=== PATIENT | male | born 2000 | race Two or more races ===

== ENCOUNTER 2023-03-24 21:20 | Emergency (ER) | payer OTHER ==
[~2023-03-24] VITALS: Ht 170.2 cm; Wt 72.6 kg
[2023-03-24] MEDS ORDERED: TRUVADA 200 MG1 EACH (21:37)
[2023-03-25] MEDS ORDERED: ONDANSETRON ODT4 MG PO (05:34)
[2023-03-25] MEDS ORDERED: LEVSIN/SL0.125 MG SL (05:34)
[2023-03-25] MEDS ORDERED: PEPCID40 MG PO (05:34)
== END 2023-03-25 05:43 ==
LOC: ER 21:20
DX: N39.0 Urinary tract infection, site not specified (principal); K80.20 Calculus of gallbladder without cholecystitis without obstruction; Z88.8 Allergy status to other drugs, medicaments and biological substances

== ENCOUNTER 2023-05-01 12:01 | Outpatient (CLI) | payer OTHER ==
[~2023-05-01 12:01] MED LIST: LEVSIN/SL0.125 MG SL; ONDANSETRON ODT4 MG PO; PEPCID40 MG PO; TRUVADA 200 MG1 EACH
== END 2023-05-01 12:02 | disposition home or self-care (01) ==
LOC: NUCLEAR 12:01
PROVIDERS: ATTEND Internal Medicine Gastroenterology
DX: K80.20 Calculus of gallbladder without cholecystitis without obstruction (principal)

== ENCOUNTER 2023-07-15 20:28 | Emergency (ER) | payer OTHER ==
[~2023-07-15] VITALS: Ht 170.2 cm; Wt 70.3 kg
[2023-07-15 21:33] LABS: HEMATOCRIT 40.1 % (39.0-48.0); HEMOGLOBIN 13.7 g/dL (13-16.00); MEAN CELL VOLUME 85.7 fL (80.0-100.00); MEAN CORPUSCULAR HEMOGLOBIN 29.3 pg (27.00-32.0); MEAN CORPUSCULAR HGB CONC 34.2 g/dl (32.0-36.0); PLATELET COUNT 177 K/uL (150-450); RED BLOOD COUNT 4.68 M/uL (4.00-6.00); RED CELL DISTRIBUTION WIDTH 13.6 % (11.5-14.5)
[2023-07-15 21:50] LABS: ALBUMIN 3.7 gm/dL (3.4-5.0); BILIRUBIN TOTAL 0.36 mg/dL (0.3-1.2); BILIRUBIN,CONJUGATED 0.14 mg/dL (0.0-0.2); BILIRUBIN,UNCONJUGATED 0.22 mg/dL (0.0-0.6); CREATININE SERUM 0.81 mg/dL (0.70-1.30); GFR 117.07; GLOBULINA 3.6 G/DL (2.4-3.5); POTASSIUM 3.68 mEq/L (3.5-5.1); TOTAL PROTEIN 7.3 gm/dL (6.4-8.2)
[2023-07-15 21:54] LABS: PH,URINE 5.5 (5.0-8.0); URINE APPEARANCE Clear; URINE BILIRRUBIN Negative (NEGATIVE); URINE BLOOD Negative; URINE COLOR Yellow; URINE GLUCOSE Negative (NEGATIVE); URINE LEUKOCYTE Negative; URINE NITRATE Negative; URINE PROTEIN Negative (NEGATIVE)
[2023-07-15 21:57] LABS: URINE BACTERIA 26.4 uL (0.0-1933); URINE RBC 6.4 uL (0.0-20.8)
[2023-07-15] MEDS ORDERED: PEPCID AC20 MG PO (23:41)
[2023-07-15] MEDS ORDERED: ONDANSETRON ODT8 MG PO (23:41)
[2023-07-15] MEDS ORDERED: CARAFATE1 GM PO (23:41)
== END 2023-07-16 00:59 | disposition home or self-care (01) ==
LOC: ER 20:29
PROVIDERS: General Practice
DX: K80.50 Calculus of bile duct without cholangitis or cholecystitis without obstruction (principal)

== ENCOUNTER 2024-08-05 20:41 | Emergency (ER) | payer OTHER ==
[~2024-08-05] VITALS: Ht 170.2 cm; Wt 70.3 kg
[~2024-08-05 20:41] MED LIST changes: +CARAFATE1 GM PO; +ONDANSETRON ODT8 MG PO; +PEPCID AC20 MG PO
[2024-08-05] MEDS ORDERED: KETOROLAC TROMETHAMINE 30 MG VIAL IM STA (22:14)
[2024-08-05] MEDS ORDERED: CEFTRIAXONE SODIUM 1,000 MG VIAL IM STA (22:15)
== END 2024-08-05 22:42 | disposition home or self-care (01) ==
LOC: ER 20:43
DX: R53.81 Other malaise (principal); J02.9 Acute pharyngitis, unspecified; Z88.2 Allergy status to sulfonamides

== ENCOUNTER 2024-11-25 16:08 | Emergency (ER) | payer OTHER ==
[~2024-11-25] VITALS: Ht 170.2 cm; Wt 74.8 kg
[2024-11-25 16:21] VITALS: BP 122/84; O2SAT 100
[2024-11-25] MEDS ORDERED: KETOROLAC TROMETHAMINE 30 MG VIAL IM STA (16:55)
[2024-11-25] MEDS ORDERED: KETOROLAC TROMETHAMINE 30 MG VIAL ONE (17:03)
== END 2024-11-25 17:36 | disposition home or self-care (01) ==
LOC: ER 16:09
DX: S90.01XA Contusion of right ankle, initial encounter (principal); W18.39XA Other fall on same level, initial encounter; Y93.89 Activity, other specified; Y92.89 Other specified places as the place of occurrence of the external cause; Y99.9 Unspecified external cause status